=== PATIENT | female | born 1945 | race African-American/Black ===

== ENCOUNTER → 2017-07-20 | Outpatient (CLI) | payer MEDICARE ==
[~2017-07-20] MED LIST: ALLO300T2 PO; ASPI-183 PO; DILT300C3 PO; FENO134C PO; HYDR25TA5 PO; KLOR10TA PO; METO25TA3 PO; VESI5TAB2 PO; ZOLE5P IV
== END ==
LOC: HRAD 11:53
PROVIDERS: ATTEND Urology
DX: N28.89 Other specified disorders of kidney and ureter (principal)

== ENCOUNTER → 2017-07-20 | Outpatient (CLI) | payer MEDICARE ==
--- NOTE | 2017-07-20 16:25 | RADRPT ---
EXAM DATE/TIME: 07/20/2017 12:18 [facility] COMPARISON : No previous studies available for comparison. INDICATIONS : Right renal mass. HISTORY OF PRESENT ILLNESS: The patient is a 72-year-old who underwent CT imaging of the abdomen and pelvis 07/13/17. Imaging demo nstrated a suspicious mass in the posterior aspect of the midpole right kidney. PAST MEDICAL HISTORY : Significant for hypertension. PAST SURGICAL HISTORY : Appendectomy, cholecystectomy and ovarian surgery. IMAGING STUDIES: The CT scan performed at [facility] dated the 07/13/17 was reviewed. ASSESSMENT: The patient's CT scan demonstrates a 2 cm heterogeneously enhancing mass in the posterior midpole the right kidney. This is in a location which would be amenable to cryoablation and biopsy. PLAN: The patient will be contacted for cryoablation and biopsy of a right renal mass. Physical examination will be performed at that time. TIME SPENT: 20 minutes. Sesar Muñiz MD on July 20, 2017 at 16:15 Board Certified Radiologist. This report was verified electronically.
== END ==
LOC: HRAD 12:08
PROVIDERS: ATTEND Urology
DX: N28.89 Other specified disorders of kidney and ureter (principal)

== ENCOUNTER 2017-08-13 13:08 | Day surgery (SDC) | payer MEDICARE ==
[2017-08-13 13:25] VITALS: BP 180/95; PULSE 83; RESP 20; TEMP 98; O2SAT 96
--- NOTE | 2017-08-15 17:14 | RADRPT ---
EXAM DATE/TIME: 08/13/2017 13:29 [facility] COMPARISON : INDICATIONS : Consult for right renal mass biopsy with cryoablation OBJECTIVE: Temperature: 98.0 Heart Rate: 83 Blood Pressure: 180/95 Respiratory: 20 Oximetry: 96 PNEUMONIA VACCINE: YES HISTORY OF PRESENT ILLNESS: ? PAST MEDICAL HISTORY : 1. Hypercholesterolemia. 2. Hypertension. 3. asthma 4. Renal calculi. 5. Arthritis. 6. Osteoporosis. PAST SURGICAL HISTORY : 1. Appendectomy. 2. Cholecystectomy. 3. Hysterectomy. 4. tonsillectomy 5. lithotripsy 6. bunion removal SOCIAL HISTORY : No alcohol use. Tobacco;none. ALLERGIES: 1. Penicillin 2. losinopril,benazepril,captopril,enalaprilat 3. acetaminophen,fosinopril,hydrocodone 4. candesartan,ibuprofen,quinapril MEDICATIONS: 1. allopurinol 300 mg q.d. 2. [id number] mg q.d. 3. diltiazem 300 mg q.d. 4. fenofibrate micronized 134 mg q.d. 5. hydrochlorothiazide 25 mg q.d. 6. Lopressor (Metroprolol)25 mg b.i.d. 7. potassium chloride ER 20 mg b.i.d. 8. vesicare 5 mg q.d. 9. reclast inj 5 mg PHYSICAL EXAMINATION: 72-year-old elderly black female in no acute distress. IMAGING STUDIES: 2 cm enhancing lesion off the posterior aspect of the right kidney. ASSESSMENT: 2 cm enhancing mass lesion off the posterior aspect of the right kidney. Patient was on aspirin up to yesterday. Scheduled ablation for the following day has been canceled PLAN: Biopsy and ablation of right renal lesion. TIME SPENT: [address] MD on August 15, 2017 at 16:57 Board Certified Radiologist. This report was verified electronically.
== END 2017-08-13 15:45 | disposition home or self-care (01) ==
LOC: HROP 13:08 → HRIP 13:08 → HROP 15:45
PROVIDERS: ATTEND Urology
DX: N28.89 Other specified disorders of kidney and ureter (principal); I10 Essential (primary) hypertension

== ENCOUNTER 2017-08-29 07:20 | Day surgery (SDC) | payer MEDICARE ==
[2017-08-29] MEDS ORDERED: CHLORHEXIDINE GLUCONATE 2 % 1 PACK (2 CLOTHS) TOPICAL (07:45)
[2017-08-29] MEDS ORDERED: LACTATED RINGER'S 1000 ML IV (07:45)
[2017-08-29] MEDS: SODIUM CHLOR 0.9% 1000 ML INJ 1,000 ML IV (07:45)
[2017-08-29] MEDS ORDERED: METOPROLOL TARTRATE 25 MG TAB PO (07:45)
[2017-08-29] MEDS ORDERED: POVIDONE IODINE 5% (ANTISEPSIS KIT) 4 APPLICATIONS EACH NARE (07:45)
[2017-08-29] MEDS ORDERED: SODIUM CHLORID 0.9% 500 ML IV (07:45)
[2017-08-29 08:36] LABS: BASOPHIL # 0.1 TH/MM3 (0-0.2); BASOPHIL % 0.9 % (0.0-2.0); EOSINOPHIL # 0.1 TH/MM3 (0-0.4); EOSINOPHIL % 1.3 % (0.0-4.0); HEMATOCRIT 35.3 % (35.0-46.0); HEMO FLAGS DIFF FINAL; HEMOGLOBIN 11.9 GM/DL (11.6-15.3); LYMPH % 17.6 % (9.0-44.0); LYMPHOCYTE # 1.2 TH/MM3 (1.0-4.8); MEAN CELL VOLUME 87.2 FL (80.0-100.0); MEAN CORPUSCULAR HEMOGLOBIN 29.4 PG (27.0-34.0); MEAN CORPUSCULAR HGB CONC 33.7 % (32.0-36.0); MEAN PLATELET VOLUME 8.2 FL (7.0-11.0); MONOCYTE # 0.6 TH/MM3 (0-0.9); NEUT % 71.2 % (16.0-70.0); PLATELET COUNT 342 TH/MM3 (150-450); RED BLOOD COUNT 4.04 MIL/MM3 (4.00-5.30); RED CELL DISTRIBUTION WIDTH 12.5 % (11.6-17.2)
[2017-08-29 08:44] LABS: APTT (PATIENT) 24.5 SEC (24.3-30.1); INTERNATIONAL NORMALIZED RATIO 1.1 RATIO; PROTHROMBIN TIME - PATIENT 11.4 SEC (9.8-11.6)
[2017-08-29 08:55] LABS: ANION GAP 9 MEQ/L (5-15); BICARBONATE 25.5 MEQ/L (21.0-32.0); BLOOD UREA NITROGEN 27 MG/DL (7-18); CALCIUM 9.3 MG/DL (8.5-10.1); CHLORIDE 109 MEQ/L (98-107); CREATININE 0.64 MG/DL (0.50-1.00); GLOMERULAR FILTRATION RATE 110 ML/MIN (>89); GLUCOSE,RANDOM 95 MG/DL (74-106); POTASSIUM 3.6 MEQ/L (3.5-5.1); SODIUM (NA) 143 MEQ/L (136-145)
[2017-08-29] MEDS: LIDOCAINE HCL 1% 20 ML VIAL (10:26)
[2017-08-29] MEDS ORDERED: DO NOT ADM ANY ANTICOAGULANT DRUGS (13:14)
[2017-08-29] MEDS ORDERED: MIDAZOLAM HCL 2 MG/2 ML VIAL (13:24)
[2017-08-29] MEDS: LEVOFLOXACIN 500 MG PREMIX INJ 100 ML IV (13:28)
[2017-08-29 14:36] LABS: AUTOMATED NEUTROPHIL # 8.5 TH/MM3 (1.8-7.7); BASOPHIL % 0.5 % (0.0-2.0); EOSINOPHIL % 0.2 % (0.0-4.0); HEMATOCRIT 35.9 % (35.0-46.0); HEMO FLAGS DIFF FINAL; HEMOGLOBIN 12.1 GM/DL (11.6-15.3); LYMPH % 8.8 % (9.0-44.0); LYMPHOCYTE # 0.8 TH/MM3 (1.0-4.8); MEAN CELL VOLUME 87.2 FL (80.0-100.0); MEAN CORPUSCULAR HEMOGLOBIN 29.4 PG (27.0-34.0); MEAN CORPUSCULAR HGB CONC 33.8 % (32.0-36.0); MEAN PLATELET VOLUME 8.5 FL (7.0-11.0); MONO % 1.7 % (0.0-8.0); MONOCYTE # 0.2 TH/MM3 (0-0.9); NEUT % 88.8 % (16.0-70.0); PLATELET COUNT 333 TH/MM3 (150-450); RED BLOOD COUNT 4.11 MIL/MM3 (4.00-5.30); RED CELL DISTRIBUTION WIDTH 12.5 % (11.6-17.2); WHITE BLOOD COUNT 9.5 TH/MM3 (4.0-11.0)
[2017-08-29 15:29] LABS: AUTOMATED NEUTROPHIL # 7.2 TH/MM3 (1.8-7.7); BASOPHIL % 0.5 % (0.0-2.0); HEMATOCRIT 33.9 % (35.0-46.0); HEMO FLAGS DIFF FINAL; HEMOGLOBIN 11.5 GM/DL (11.6-15.3); LYMPH % 7.2 % (9.0-44.0); LYMPHOCYTE # 0.6 TH/MM3 (1.0-4.8); MEAN CELL VOLUME 85.5 FL (80.0-100.0); MEAN CORPUSCULAR HEMOGLOBIN 28.9 PG (27.0-34.0); MEAN CORPUSCULAR HGB CONC 33.8 % (32.0-36.0); MEAN PLATELET VOLUME 8.2 FL (7.0-11.0); MONO % 1.3 % (0.0-8.0); MONOCYTE # 0.1 TH/MM3 (0-0.9); PLATELET COUNT 325 TH/MM3 (150-450); RED BLOOD COUNT 3.97 MIL/MM3 (4.00-5.30); RED CELL DISTRIBUTION WIDTH 12.4 % (11.6-17.2); WHITE BLOOD COUNT 7.9 TH/MM3 (4.0-11.0)
[2017-08-29] MEDS: KETOROLAC TROMETHAMINE 30 MG/ML (IVP) VIAL (16:47)
[2017-08-29] MEDS: KETOROLAC TROMETHAMINE 30 MG/ML (IVP) VIAL IV PUSH (16:47)
[2017-08-29] MEDS ORDERED: traMADol HCL 50 MG TAB PO (17:00)
== END 2017-08-29 17:45 | disposition home or self-care (01) ==
LOC: HROP 07:20 → HRIP 07:23 → HROP 17:45
DX: N28.89 Other specified disorders of kidney and ureter (principal); I10 Essential (primary) hypertension; J45.909 Unspecified asthma, uncomplicated; G47.30 Sleep apnea, unspecified
CPT/HCPCS: 00862; 50200; 50593; 77012; 77013; 80048; 85025; 85610; 85730; 88307; 88341; 88342; 93005